=== PATIENT | female | born 1980 | race Caucasian/White ===

== ENCOUNTER 2016-02-14 16:07 | Outpatient (CLI) | payer BC | END 2016-02-14 16:08 | disposition home or self-care (01) | DX: R07.89 Other chest pain (principal) ==

== ENCOUNTER 2016-06-26 16:39 | Outpatient (CLI) | payer BC | END 2016-06-26 16:40 | disposition critical access hospital (66) | DX: R09.89 Other specified symptoms and signs involving the circulatory and respiratory systems (principal) | CPT/HCPCS: A0425; A0429 ==

== ENCOUNTER 2016-06-26 17:05 | Emergency (ER) | payer OTHER, BC ==
[2016-06-26] MEDS ORDERED: LORazepam 0.5 MG TABLET PO STA ×2 (17:38→17:58)
[2016-06-26] MEDS ORDERED: LORazepam 0.5 MG TABLET ONE ×2 (17:40→17:59)
--- NOTE | 2016-06-26 18:41 | ED Physician Documentation ---
History of Present Illness - Stated complaint Stated Complaint: anxiety - Chief complaint Chief Complaint: MHE - History obtained from History obtained from: Patient, Police - Additonal information Additional information: The patient is a 36-year-old female who [facility] When she was placed under arrest the patient became increasingly anxious and began hyperventilating. She remains under arrest, and the officer has brought to the emergency department for medical evaluation to determine fitness for custody in prison. The patient denies the use of alcohol or other drugs. She denies any recent traumatic injury, but complains of feeling anxious and short of breath. Due to the anxiety she exudes, the reliability of her review of systems is questionable. She endorses any symptom that is asked of her, including whether or not her teeth itch or her hair hurts. Review of Systems Unable to obtain: Other (Unreliable in that she has a dominguez positive review of systems.) PD PAST MEDICAL HISTORY - Past Medical History Respiratory: Asthma, Shortness of breath, Other Endocrine/Autoimmune: None : None Psych: Post traumatic stress disorder Musculoskeletal: None Derm: None - Past Surgical History Past Surgical History: Yes - Present Medications Home Medications: Ambulatory Orders Medication Instructions Recorded Confirmed Albuterol Sulf [Ventolin Hfa 01/04/16 Inhaler] Fluticasone 44 Mcg [Flovent] 1 puffs INH BID 01/04/16 01/04/16 - Allergies Allergies/Adverse Reactions: Allergies Allergy/AdvReac Type Severity Reaction Status Date / Time azithromycin Allergy Hives Verified 06/26/16 17:13 morphine Allergy Nausea Verified 06/26/16 17:13 Penicillins Allergy Rash Verified 06/26/16 17:13 codeine AdvReac Nausea Verified 06/26/16 17:13 - Social History Does the pt smoke?: No Smoking Status: Never smoker Does the pt drink ETOH?: No Does the pt have substance abuse?: No - Immunizations Immunizations are current?: No - POLST Patient has POLST: No PD ED PE NORMAL - Vitals Vital signs reviewed: Yes (Tachypneic) - General General: Alert and oriented X 3, Well developed/nourished, Other (Extremely anxious, and hyperventilating.) - HEENT HEENT: Atraumatic, PERRL, EOMI, Ears normal, Pharynx benign - Neck Neck: Supple, no meningeal sign, No adenopathy, No JVD - Cardiac Cardiac: RRR, No murmur - Respiratory Respiratory: No respiratory distress, Clear bilaterally - Abdomen Abdomen: Soft, Non tender, No organomegaly - Back Back: No CVA TTP - Derm Derm: No rash - Extremities Extremities: No edema, No calf tenderness / cord - Neuro Neuro: Alert and oriented X 3, No motor deficit PD ED PE EXPANDED - Psych Psych: Anxious, Pressured speech Results - Vitals Vitals: Oxygen O2 Source Room air - Labs Labs: Laboratory Tests 06/26/16 18:05 Urine Opiates Screen NEGATIVE Ur Oxycodone Screen NEGATIVE Urine Methadone Screen NEGATIVE Ur Propoxyphene Screen NEGATIVE Ur Barbiturates Screen NEGATIVE Ur Tricyclics Screen NEGATIVE Ur Phencyclidine Scrn NEGATIVE Ur Amphetamine Screen POSITIVE H U Methamphetamines Scrn POSITIVE H U Benzodiazepines Scrn NEGATIVE Urine Cocaine Screen NEGATIVE U Cannabinoids Screen POSITIVE H PD MEDICAL DECISION MAKING - ED course Complexity details: reviewed old records, reviewed results, re-evaluated patient , considered differential, d/w patient, other (d/w [facility].) ED course: The patient's presentation is significant for anxiety reaction to the stress of being placed under arrest. She is also under the influence of methamphetamine, with a urine tox screen that is positive for amphetamine, methamphetamine, and cannabinoids. She was hyperventilating upon initial arrival in the emergency department. By the time of discharge her hyperventilation had resolved. Treatment in the emergency department included administration of lorazepam 0.5 mg orally. The nurse at the [facility] was contacted and confirms that staff at the prison are able to monitor a person in the patient's condition. A fit for custody form was completed. At the time of discharge, when the patient was requested to stand up from the [place], she allowed herself to fall to the floor, and began complaining of pain in her right hip. I thoroughly examined her hip and pelvis, and found there to be no clinical indication for imaging studies. She demonstrated the ability to bear weight on her right leg as she was walked to the squad car in the custody of the [facility]. Departure - Departure Disposition: 01 Home, Self Care Clinical Impression: Hyperventilation syndrome, Methamphetamine abuse Condition: Stable Instructions: ED Hyperventilation Syndrome, Abuse Meth Abuse and Addiction Follow-Up: Jayne Pyle MD [Physician No Access] - Comments: Refrain from methamphetamine and other nonprescription drugs. Follow up with your primary physician. Call to schedule an appointment. Return to the emergency department if you develop increasing difficulty breathing, or otherwise worsening symptoms. Discharge Date/Time: 06/26/16 18:55
[2016-06-26 18:54] VITALS: BP 165/110
== END 2016-06-26 18:55 | disposition home or self-care (01) ==
LOC: ED 17:05
DX: F45.8 Other somatoform disorders (principal); F41.9 Anxiety disorder, unspecified; F15.10 Other stimulant abuse, uncomplicated; M25.551 Pain in right hip; J45.909 Unspecified asthma, uncomplicated
CPT/HCPCS: 80306; 99283; 99284; A9270

== ENCOUNTER 2017-08-03 17:38 | Outpatient (CLI) | payer BC, OTHER | END 2017-08-03 17:39 | disposition short-term general hospital (02) | LOC: EMS 17:38 | PROVIDERS: ATTEND Surgery | DX: O99.89 Other specified diseases and conditions complicating pregnancy, childbirth and the puerperium (principal); R10.9 Unspecified abdominal pain; Y04.2XXA Assault by strike against or bumped into by another person, initial encounter | CPT/HCPCS: A0425; A0429 ==

== ENCOUNTER 2017-11-25 23:38 | Outpatient (CLI) | payer BC, MEDICAID ==
[2017-11-26 01:03] LABS: MUDS CUTOFF CONCENTRATIONS CUTOFF CONC BELOW:
[2017-11-26 01:09] LABS: BILIRUBIN,URINE NEGATIVE (NEGATIVE); GLUCOSE, URINE (UA) NEGATIVE (NEGATIVE); KETONES,URINE (UA) TRACE mg/dL (NEGATIVE); LEUKOCYTE ESTERASE, URINE NEGATIVE (NEGATIVE); NITRITE,URINE NEGATIVE (NEGATIVE); OCCULT BLOOD,URINE NEGATIVE (NEGATIVE); PH,URINE 6.5 PH (5.0-7.5); PROTEIN,URINE NEGATIVE (NEGATIVE); UROBILINOGEN,URINE 0.2 (NORMAL) E.U./dL (NORMAL)
[2017-11-26 01:20] LABS: CLARITY,URINE CLEAR (CLEAR); COCAINE SCREEN URINE NEGATIVE (NEGATIVE); METHAMPHETAMINES SCREEN, URINE NEGATIVE (NEGATIVE)
[2017-11-26 01:21] LABS: AMPHETAMINE SCREEN,URINE POSITIVE (NEGATIVE); BENZODIAZEPINES SCREEN, URINE NEGATIVE (NEGATIVE); METHADONE SCREEN, URINE NEGATIVE (NEGATIVE); OPIATE SCREEN, URINE NEGATIVE (NEGATIVE); OXYCODONE SCREEN, URINE NEGATIVE (NEGATIVE); PROPOXYPHENE SCREEN, URINE NEGATIVE (NEGATIVE); TRICYCLIC ANTIDEPRESSANT,URINE NEGATIVE (NEGATIVE)
[2017-11-26 02:02] VITALS: BP 124/91
== END 2017-11-26 01:55 | disposition home or self-care (01) ==
LOC: WFO 23:38 → FBP 23:45 → WFO 11-26 01:55
PROVIDERS: ATTEND Obstetrics & Gynecology
DX: O47.03 False labor before 37 completed weeks of gestation, third trimester (principal); Z3A.32 32 weeks gestation of pregnancy
CPT/HCPCS: 80306; 81001; 81003; 82731; 87086; 99213

== ENCOUNTER 2017-12-30 01:49 | Outpatient (CLI) | payer BC, MEDICAID ==
[2017-12-30 02:15] VITALS: BP 136/91
[2017-12-30 02:22] LABS: MUDS CUTOFF CONCENTRATIONS CUTOFF CONC BELOW:
[2017-12-30 02:23] LABS: BILIRUBIN,URINE NEGATIVE (NEGATIVE); GLUCOSE, URINE (UA) NEGATIVE (NEGATIVE); KETONES,URINE (UA) NEGATIVE (NEGATIVE); LEUKOCYTE ESTERASE, URINE NEGATIVE (NEGATIVE); NITRITE,URINE NEGATIVE (NEGATIVE); OCCULT BLOOD,URINE NEGATIVE (NEGATIVE); PROTEIN,URINE NEGATIVE (NEGATIVE); UROBILINOGEN,URINE 0.2 (NORMAL) E.U./dL (NORMAL)
[2017-12-30 02:24] LABS: CLARITY,URINE CLEAR (CLEAR)
[2017-12-30 02:25] LABS: BACTERIA,URINE None Seen /HPF (None Seen); RBC,URINE None Seen /HPF (0-5); SQUAMOUS EPITHELIAL CELL,UR NONE SEEN (<= Few)
[2017-12-30 02:33] LABS: AMPHETAMINE SCREEN,URINE POSITIVE (NEGATIVE); BENZODIAZEPINES SCREEN, URINE NEGATIVE (NEGATIVE); COCAINE SCREEN URINE NEGATIVE (NEGATIVE); METHADONE SCREEN, URINE NEGATIVE (NEGATIVE); METHAMPHETAMINES SCREEN, URINE POSITIVE (NEGATIVE); OPIATE SCREEN, URINE NEGATIVE (NEGATIVE); OXYCODONE SCREEN, URINE NEGATIVE (NEGATIVE); PROPOXYPHENE SCREEN, URINE NEGATIVE (NEGATIVE); TRICYCLIC ANTIDEPRESSANT,URINE NEGATIVE (NEGATIVE)
== END 2017-12-30 03:38 | disposition home or self-care (01) ==
LOC: WFO 01:49 → FBP 01:51 → WFO 03:38
PROVIDERS: ATTEND Obstetrics & Gynecology
DX: O26.93 Pregnancy related conditions, unspecified, third trimester (principal); O99.323 Drug use complicating pregnancy, third trimester; F15.90 Other stimulant use, unspecified, uncomplicated; O22.33 Deep phlebothrombosis in pregnancy, third trimester; Z3A.37 37 weeks gestation of pregnancy; Z79.01 Long term (current) use of anticoagulants
CPT/HCPCS: 80306; 81001; 87086; 99213

== ENCOUNTER 2018-07-23 14:53 | Emergency (ER) | payer BC, MEDICAID ==
[2018-07-23 15:19] VITALS: BP 128/87
[2018-07-23] MEDS ORDERED: cefTRIAXone 1 GM VIAL IM STA (16:43)
[2018-07-23] MEDS ORDERED: LIDOCAINE 1% 2 ML VIAL MC ONE (16:43)
[2018-07-23] MEDS ORDERED: oxyCODONE 5 MG TABLET PO STA (16:45)
[2018-07-23] MEDS ORDERED: CLINDAMYCIN 150 MG CAPSULE PO STA (16:45)
== END 2018-07-23 16:50 | disposition left against medical advice (07) ==
LOC: ED 14:53
DX: Z53.21 Procedure and treatment not carried out due to patient leaving prior to being seen by health care provider (principal)
CPT/HCPCS: 99282

== ENCOUNTER 2018-07-26 00:05 | Emergency (ER) | payer MEDICAID ==
[2018-07-26] MEDS ORDERED: CLINDAMYCIN 300 MG/2 ML VIAL IM STA (00:47)
[2018-07-26] MEDS ORDERED: CLINDAMYCIN 900 MG/50 ML 50 ML IV ONE (01:04)
[2018-07-26] MEDS ORDERED: oxyCODONE 5 MG TABLET PO STA (01:05)
[2018-07-26] MEDS ORDERED: SULFAMETH/TRIMETH DS 800/160 MG TABLET PO STA (01:48)
--- NOTE | 2018-07-26 01:53 | ED Physician Documentation ---
PD HPI SKIN - Stated complaint Stated Complaint: HARRY/WOUND OOZING - Chief complaint Chief Complaint: Neuro - History obtained from History obtained from: Patient - History of Present Illness Timing - onset: How many weeks ago (1) Timing - details: Gradual onset Location: Scalp Quality / character: Painful, Swelling, Draining Similar symptoms before: Has not had sx before - Additional information Additional information: The patient is a 38-year-old female who presents with draining abscess on the posterior scalp at the hairline. She first noticed a small swollen "pimple" about 1 week ago after having hair extensions placed. It has become increasingly swollen and painful since that time. She presented to the emergency department 2 days ago, but left prior to receiving treatment because she had to attend to her baby. She returns now because the abscess has been oozing pus today. It remains painful. She denies fever. She denies history of similar symptoms in the past. She denies history of MRSA. Review of Systems Constitutional: denies: Fever Eyes: denies: Irritation Ears: denies: Ear pain Nose: denies: Congestion Throat: denies: Sore throat Cardiac: denies: Chest pain / pressure Respiratory: denies: Dyspnea, Cough GI: denies: Abdominal Pain, Nausea, Vomiting Skin: reports: Other (Abscess posterior scalp.) Musculoskeletal: reports: Neck pain Neurologic: reports: Headache PD PAST MEDICAL HISTORY - Past Medical History Past Medical History: Yes Respiratory: Asthma, Shortness of breath, Other Endocrine/Autoimmune: None : None Psych: Post traumatic stress disorder Musculoskeletal: None Derm: None - Past Surgical History Past Surgical History: Yes - Present Medications Home Medications: Ambulatory Orders Medication Instructions Recorded Confirmed Albuterol Sulf [Ventolin Hfa 01/04/16 Inhaler] Clindamycin HCl [Clindamycin 300MG 300 mg PO Q6H #28 capsule 07/26/18 CAP] Oxycodone HCl/Acetaminophen 1 - 2 each PO Q6H PRN #14 tablet 07/26/18 [Percocet 5-325 mg Tablet] Sulfamethox/Trimeth 800/160 1 each PO BID #14 tablet 07/26/18 [Bactrim Ds 800/160] - Allergies Allergies/Adverse Reactions: Allergies Allergy/AdvReac Type Severity Reaction Status Date / Time azithromycin Allergy Hives Verified 07/26/18 00:12 morphine Allergy Nausea Verified 07/26/18 00:12 Penicillins Allergy Rash Verified 07/26/18 00:12 codeine AdvReac Nausea Verified 07/26/18 00:12 - Social History Does the pt smoke?: No Smoking Status: Never smoker Does the pt drink ETOH?: No Does the pt have substance abuse?: No - Immunizations Immunizations are current?: No - POLST Patient has POLST: No PD ED PE NORMAL - Vitals Vital signs reviewed: Yes (initially hypertensive) - General General: Alert and oriented X 3, Well developed/nourished - HEENT HEENT: Atraumatic, EOMI, Ears normal, Pharynx benign, Other (A draining abscess is noted on the posterior scalp just above the hairline. It is erythematous and quite tender to palpation.) - Neck Neck: Supple, no meningeal sign, Other (Posterior cervical nodes are slightly enlarged.) - Cardiac Cardiac: RRR, No murmur - Respiratory Respiratory: No respiratory distress, Clear bilaterally - Abdomen Abdomen: Soft, Non tender - Back Back: No CVA TTP - Derm Derm: No rash - Extremities Extremities: No edema, No calf tenderness / cord - Neuro Neuro: Alert and oriented X 3, No motor deficit, Normal speech Results - Vitals Vitals: Vital Signs - 24 hr 07/26/18 07/26/18 00:07 03:00 Temperature 36.4 C L 36.7 C Heart Rate 109 H 94 Respiratory 16 Rate Blood Pressure 147/98 H 142/94 H O2 Saturation 97 99 Oxygen O2 Source Room air - Labs Labs: Microbiology 07/26/18 01:25 Wound Culture - Preliminary Abscess Procedures - Abscess I&D (location) Posterior scalp Preparation: Betadine, Lidocaine 1%, With epi Incision: Purulent drainage, Loculations broken, Irrigated, Culture obtained Other: Dressing applied, Antibiotic prescribed, Other (The patient stopped me from inserting iodoform packing due to discomfort.) PD MEDICAL DECISION MAKING - ED course Complexity details: reviewed old records, re-evaluated patient, considered differential, d/w patient ED course: The patient's presentation is significant for abscess in the occipital region of the scalp. The abscess has begun draining spontaneously. Treatment in the emergency department included irrigation of the abscess pocket after topical anesthetic with 1% lidocaine with epinephrine. The patient would not allow me to insert an iodoform gauze packing. Swab of the abscess site was sent for culture. Oxycodone 5 mg was administered orally and fentanyl 25 mg administered IV. Clindamycin 900 mg was administered IV and Bactrim DS 1 tablet orally. She is being discharged with prescriptions for clindamycin, Bactrim DS, and Percocet 14 tablets. I discussed with her local wound care, antibiotic treatment and outpatient follow-up, as well as potentially worrisome signs or symptoms that should prompt reevaluation in the emergency department. Departure - Departure Disposition: 01 Home, Self Care Clinical Impression: Abscess Condition: Stable Instructions: ED Abscess IandD Prescriptions: Clindamycin HCl [Clindamycin 300MG CAP] 300 mg PO Q6H #28 capsule Oxycodone HCl/Acetaminophen [Percocet 5-325 mg Tablet] 1 - 2 each PO Q6H PRN #14 tablet PRN Reason: pain Sulfamethox/Trimeth 800/160 [Bactrim Ds 800/160] 1 each PO BID #14 tablet Comments: Apply hot pack to the abscess area 4 or 5 times daily for the next 3 days. Take clindamycin and Bactrim as prescribed. You can use ibuprofen, up to 800 mg 3 times daily for pain or fever. You can use Percocet as prescribed if needed for pain. Follow-up with primary physician within 1 week if at all possible. Call to schedule an appointment. Return to the emergency department if you develop increasing redness, swelling, pain, fever with shaking chills, or otherwise worsening symptoms. Discharge Date/Time: 07/26/18 03:02
[2018-07-26] MEDS ORDERED: fentaNYL 100 MCG/2 ML VIAL IVP STA (02:46)
[2018-07-26 03:01] VITALS: BP 142/94
== END 2018-07-26 03:02 | disposition home or self-care (01) ==
LOC: ED 00:05
DX: L02.811 Cutaneous abscess of head [any part, except face] (principal); Z88.0 Allergy status to penicillin
CPT/HCPCS: 10060; 87070; 87181; 87205; 96365; 96375; 99283; A9270

== ENCOUNTER 2019-01-02 08:19 | Outpatient (CLI) | payer OTHER, MEDICAID | END 2019-01-02 08:20 | disposition critical access hospital (66) | LOC: EMS 08:19 | PROVIDERS: ATTEND Surgery | DX: R51 Headache (principal); M25.552 Pain in left hip; M25.512 Pain in left shoulder; W18.2XXA Fall in (into) shower or empty bathtub, initial encounter; Y93.E1 Activity, personal bathing and showering; Y92.89 Other specified places as the place of occurrence of the external cause | CPT/HCPCS: A0425; A0429 ==

== ENCOUNTER 2019-01-02 08:22 | Emergency (ER) | payer OTHER, MEDICAID ==
[2019-01-02 09:12] LABS: BILIRUBIN,URINE NEGATIVE (NEGATIVE); GLUCOSE, URINE (UA) NEGATIVE (NEGATIVE); KETONES,URINE (UA) NEGATIVE (NEGATIVE); LEUKOCYTE ESTERASE, URINE NEGATIVE (NEGATIVE); NITRITE,URINE NEGATIVE (NEGATIVE); OCCULT BLOOD,URINE NEGATIVE (NEGATIVE); PH,URINE 7.5 PH (5.0-7.5); PROTEIN,URINE NEGATIVE (NEGATIVE); UROBILINOGEN,URINE 0.2 (NORMAL) E.U./dL (NORMAL)
[2019-01-02 09:18] LABS: MUDS CUTOFF CONCENTRATIONS CUTOFF CONC BELOW:
[2019-01-02 09:26] LABS: CLARITY,URINE CLEAR (CLEAR); HCG UR QUAL NEGATIVE
[2019-01-02 09:28] LABS: BASOPHILS % (AUTO) 0.4 %; EOSINOPHILS # (AUTO) 0.1 10^3/uL (0.0-0.7); EOSINOPHILS % (AUTO) 0.9 %; LYMPHOCYTES # (AUTO) 1.5 10^3/uL (1.5-3.5); LYMPHOCYTES % (AUTO) 15.8 %; MEAN CORPUSCULAR HEMOGLOBIN 30.7 pg (27.0-31.0); MEAN CORPUSCULAR HGB CONC 33.6 g/dL (32.0-36.0); MEAN CORPUSCULAR VOLUME 91.4 fL (81.0-99.0); MEAN PLATELET VOLUME 9.9 fL (7.9-10.8); MONOCYTES # (AUTO) 0.6 10^3/uL (0.0-1.0); MONOCYTES % (AUTO) 6.4 %; NEUTROPHILS # (AUTO) 7.3 10^3/uL (1.5-6.6); NEUTROPHILS % (AUTO) 76.1 %; PLT - PLATELET COUNT 327 10^3/uL (130-450); RED BLOOD COUNT 4.88 10^6/uL (4.20-5.40); RED CELL DISTRIBUTION WIDTH 13.3 % (12.0-15.0); WHITE BLOOD COUNT 9.6 x10^3/uL (4.8-10.8)
[2019-01-02 09:28] LABS: AMPHETAMINE SCREEN,URINE NEGATIVE (NEGATIVE); BENZODIAZEPINES SCREEN, URINE POSITIVE (NEGATIVE); COCAINE SCREEN URINE NEGATIVE (NEGATIVE); METHADONE SCREEN, URINE NEGATIVE (NEGATIVE); METHAMPHETAMINES SCREEN, URINE NEGATIVE (NEGATIVE); OPIATE SCREEN, URINE NEGATIVE (NEGATIVE); OXYCODONE SCREEN, URINE NEGATIVE (NEGATIVE); PROPOXYPHENE SCREEN, URINE NEGATIVE (NEGATIVE); TRICYCLIC ANTIDEPRESSANT,URINE NEGATIVE (NEGATIVE)
--- NOTE | 2019-01-02 09:41 | CT Report ---
Reason: syncope, fall head and neck inj. L sided deficit Procedure Date: 01/02/2019 Accession Number: [id number] / [id number] Procedure: CT - CERVICAL SPINE WO CPT Code: Final Report FULL RESULT: EXAM: CT CERVICAL SPINE WITHOUT CONTRAST DATE: 01/02/2019 09:09 AM. HISTORY: Syncope, fall head and neck injury/pain. L sided deficit. COMPARISONS: None. TECHNIQUE: Thin-section axial images were acquired of the cervical spine without contrast. Post-processing: Coronal and sagittal reformats. Other: None. In accordance with CT protocol optimization, one or more of the following dose reduction techniques were utilized for this exam: automated exposure control, adjustment of mA and/or KV based on patient size, or use of iterative reconstructive technique. FINDINGS: Alignment: No scoliosis or spondylolisthesis. Bones: No fracture or bone lesion. Interspace Levels/Facets: No acute malalignment. Mild C5-C6 disk level degenerative changes with disk height loss and osteophytosis. No significant spinal stenosis seen. Other: The paravertebral and prevertebral soft tissues are unremarkable. Mild paraseptal emphysema at the lung apices. IMPRESSION: Negative cervical spine CT. RADIA
[2019-01-02 09:42] LABS: ALBUMIN 4.3 g/dL (3.2-5.5); ALBUMIN/GLOBULIN RATIO 1.2 (1.0-2.2); CREATININE 0.6 mg/dL (0.4-1.0); TOTAL PROTEIN 7.8 g/dL (6.7-8.2)
--- NOTE | 2019-01-02 10:17 | CT Report ---
Reason: syncope, fall head injury Left sided deficit Procedure Date: 01/02/2019 Accession Number: [id number] / [id number] Procedure: CT - HEAD WO CPT Code: Final Report FULL RESULT: EXAM: CT HEAD EXAM DATE: 01/02/2019 09:18 AM. CLINICAL HISTORY: Syncope, fall head injury Left sided deficit. COMPARISON: HEAD W/O 01/02/2019 9:09 AM CERVICAL SPINE W/O 01/02/2019 9:09 AM. TECHNIQUE: Multiaxial CT images were obtained from the foramen magnum to the vertex. Reformats: Sagittal and coronal. IV contrast: None. In accordance with CT protocol optimization, one or more of the following dose reduction techniques were utilized for this exam: automated exposure control, adjustment of mA and/or KV based on patient size, or use of iterative reconstructive technique. FINDINGS: Parenchyma: No intraparenchymal hemorrhage. No evidence of mass, midline shift, or CT findings of infarction. Aden-white differentiation is distinct. Extraaxial Spaces: Normal for age. No subdural or epidural collections identified. Ventricles: Normal in size and position. Sinuses and Orbits: Imaged paranasal sinuses, orbits, and mastoids show no significant abnormality. Bones: No evidence of fracture or calvarial defect. Other: None. IMPRESSION: Normal head CT. RADIA
--- NOTE | 2019-01-02 11:49 | XRAY Report ---
Reason: fall left hip pain Procedure Date: 01/02/2019 Accession Number: [id number] / [id number] Procedure: XR - Hip w/Pelvis 2-3V LT CPT Code: Final Report FULL RESULT: EXAM: LEFT HIP RADIOGRAPHY EXAM DATE: 01/02/2019 11:24 AM. CLINICAL HISTORY: Fall left hip pain. COMPARISON: None. TECHNIQUE: 2 views. FINDINGS: Bones: Normal. No fractures or bone lesion. Joints: Normal. No dislocation. The hip joint space is preserved. Soft Tissues: Normal. No soft tissue swelling. IMPRESSION: Normal hip radiography. RADIA
--- NOTE | 2019-01-02 11:49 | XRAY Report ---
Reason: fall left lateral elbow pain Procedure Date: 01/02/2019 Accession Number: [id number] / [id number] Procedure: XR - Elbow 3 View LT CPT Code: Final Report FULL RESULT: EXAM: LEFT ELBOW RADIOGRAPHY EXAM DATE: 01/02/2019 11:25 AM. CLINICAL HISTORY: Fall left lateral elbow pain. COMPARISON: None. TECHNIQUE: 4 views. FINDINGS: Bones: Normal. No fractures or bone lesions. Joints: Normal. No effusion. No subluxation. Soft Tissues: Normal. No soft tissue swelling. IMPRESSION: Normal elbow radiography. RADIA
--- NOTE | 2019-01-02 12:14 | ED Physician Documentation ---
PD HPI Fall - Stated complaint Stated Complaint: GLF - Chief complaint Chief Complaint: Trauma Hd/Nk - History obtained from History obtained from: Patient, EMS - History of Present Illness Mechanism of injury: Slipped Fall distance: Standing position Where injury occurred: Detention (shower) Timing - onset: Today Injury(ies) location: Head, Neck, Left Uppper Extremity, Left Lower Extremity Quality of pain: Pain, Throbbing Associated symptoms: Neck pain, Weakness, Paresthesias. No: LOC, AMS, Amnesia Symptoms improve with: Rest Worsens with: Movement Similar symptoms before: Has not had sx before Recently seen: Other (seen in [facility] for withdrawal symptoms) - Additional information Additional information: 38-year-old female in [facility] for 1 week was in the shower today when she collapsed and fell against the left side of her body. She complains of pain in her head her neck her left elbow and her left hip. She feels that she is not able to feel or move her lower extremities. Review of Systems Constitutional: denies: Fever Eyes: denies: Decreased vision Ears: denies: Ear pain Nose: denies: Congestion Throat: denies: Sore throat Cardiac: denies: Chest pain / pressure, Palpitations Respiratory: denies: Dyspnea, Cough GI: denies: Abdominal Pain, Nausea, Vomiting : denies: Dysuria, Frequency PD PAST MEDICAL HISTORY - Past Medical History Past Medical History: Yes Respiratory: Asthma, Shortness of breath, Other Endocrine/Autoimmune: None : None Psych: Post traumatic stress disorder Musculoskeletal: None Derm: None - Past Surgical History Past Surgical History: Yes - Present Medications Home Medications: Ambulatory Orders Medication Instructions Recorded Confirmed Albuterol Sulf [Ventolin Hfa 01/04/16 Inhaler] Clindamycin HCl [Clindamycin 300MG 300 mg PO Q6H #28 capsule 07/26/18 CAP] Oxycodone HCl/Acetaminophen 1 - 2 each PO Q6H PRN #14 tablet 07/26/18 [Percocet 5-325 mg Tablet] Sulfamethox/Trimeth 800/160 1 each PO BID #14 tablet 07/26/18 [Bactrim Ds 800/160] - Allergies Allergies/Adverse Reactions: Allergies Allergy/AdvReac Type Severity Reaction Status Date / Time azithromycin Allergy Hives Verified 01/02/19 08:39 morphine Allergy Nausea Verified 01/02/19 08:39 Penicillins Allergy Rash Verified 01/02/19 08:39 codeine AdvReac Nausea Verified 01/02/19 08:39 - Social History Does the pt smoke?: No Smoking Status: Never smoker Does the pt drink ETOH?: No Does the pt have substance abuse?: No - Immunizations Immunizations are current?: No - POLST Patient has POLST: No PD ED PE NORMAL - Vitals Vital signs reviewed: Yes - General General: Alert and oriented X 3, Well developed/nourished, Other (on a backboard in C-spine immobilizatio n) - HEENT HEENT: Atraumatic, PERRL, EOMI - Neck Neck: Supple, no meningeal sign, Other (midline bony tenderness mid cervical spine. ) - Cardiac Cardiac: RRR, No murmur - Respiratory Respiratory: No respiratory distress, Clear bilaterally, Other (no chest wall tenderness) - Abdomen Abdomen: Soft, Non tender - Back Back: No CVA TTP, No spinal TTP - Derm Derm: Normal color, No rash - Extremities Extremities: No deformity, No edema - Neuro Neuro: Alert and oriented X 3, field supervisor 2-12 intact, Normal speech, Other (On initial exam there is loss of sensation to the lower ext worse on the left and she is moving the toes on the right but not the left. ) Eye Opening: Spontaneous Motor: Obeys Commands Verbal: Oriented GCS Score: 15 - Psych Psych: Normal mood, Normal affect Results - Vitals Vitals: Vital Signs - 24 hr 01/02/19 01/02/19 08:26 11:00 Temperature 36.9 C Heart Rate 81 76 Respiratory 18 18 Rate Blood Pressure 134/93 H 110/94 H O2 Saturation 99 100 Oxygen O2 Source Room air - Labs Labs: Laboratory Tests 01/02/19 01/02/19 01/02/19 09:02 09:02 09:22 WBC 9.6 RBC 4.88 Hgb 15.0 Hct 44.6 MCV 91.4 MCH 30.7 MCHC 33.6 RDW 13.3 Plt Count 327 MPV 9.9 Neut # (Auto) 7.3 H Lymph # (Auto) 1.5 [place] # (Auto) 0.6 Eos # (Auto) 0.1 Baso # (Auto) 0.0 Absolute Nucleated RBC 0.00 Nucleated RBC % 0.0 Sodium Potassium Chloride Carbon Dioxide Anion Gap BUN Creatinine Estimated GFR (MDRD) Glucose Calcium Total Bilirubin AST ALT Alkaline Phosphatase Total Protein Albumin Globulin Albumin/Globulin Ratio Lipase Urine Color YELLOW Urine Clarity CLEAR Urine pH 7.5 Ur Specific [place] 1.010 Urine Protein NEGATIVE Urine Glucose (UA) NEGATIVE Urine Ketones NEGATIVE Urine Occult Blood NEGATIVE Urine Nitrite NEGATIVE Urine Bilirubin NEGATIVE Urine Urobilinogen 0.2 (NORMAL) Ur Leukocyte Esterase NEGATIVE Ur Microscopic Review NOT INDICATED Urine Culture Comments NOT INDICATED Urine HCG, Qual NEGATIVE Urine Opiates Screen NEGATIVE Ur Oxycodone Screen NEGATIVE Urine Methadone Screen NEGATIVE Ur Propoxyphene Screen NEGATIVE Ur Barbiturates Screen NEGATIVE Ur Tricyclics Screen NEGATIVE Ur Phencyclidine Scrn NEGATIVE Ur Amphetamine Screen NEGATIVE U Methamphetamines Scrn NEGATIVE U Benzodiazepines Scrn POSITIVE H Urine Cocaine Screen NEGATIVE U Cannabinoids Screen POSITIVE H 01/02/19 09:22 WBC RBC Hgb Hct MCV MCH MCHC RDW Plt Count MPV Neut # (Auto) Lymph # (Auto) [place] # (Auto) Eos # (Auto) Baso # (Auto) Absolute Nucleated RBC Nucleated RBC % Sodium 137 Potassium 4.2 Chloride 102 Carbon Dioxide 28 Anion Gap 7.0 BUN 9 Creatinine 0.6 Estimated GFR (MDRD) 112 Glucose 87 Calcium 9.0 Total Bilirubin 1.0 AST 22 ALT 30 Alkaline Phosphatase 66 Total Protein 7.8 Albumin 4.3 Globulin 3.5 Albumin/Globulin Ratio 1.2 Lipase 33 Urine Color Urine Clarity Urine pH Ur Specific [place] Urine Protein Urine Glucose (UA) Urine Ketones Urine Occult Blood Urine Nitrite Urine Bilirubin Urine Urobilinogen Ur Leukocyte Esterase Ur Microscopic Review Urine Culture Comments Urine HCG, Qual Urine Opiates Screen Ur Oxycodone Screen Urine Methadone Screen Ur Propoxyphene Screen Ur Barbiturates Screen Ur Tricyclics Screen Ur Phencyclidine Scrn Ur Amphetamine Screen U Methamphetamines Scrn U Benzodiazepines Scrn Urine Cocaine Screen U Cannabinoids Screen - Rads (name of study) CT head Radiology: Prelim report reviewed (Impression normal head CT.), EMP read indepedently, See rad report CT cervical spine Radiology: Prelim report reviewed (Impression negative cervical spine CT.), EMP read indepedently, See rad report left elbow Radiology: Prelim report reviewed (Impression normal elbow radiography.), EMP read indepedently, See rad report Left hip Radiology: Prelim report reviewed, EMP read indepedently, See rad report PD MEDICAL DECISION MAKING - ED course Complexity details: reviewed old records, reviewed results, re-evaluated patient, considered differential, d/w patient ED course: 38-year-old female with a fall in the [facility] has complaints of pain in the head neck left elbow and left hip these all improve over time as does her ability to move her lower extremities and have sensation to them. She is discharged back to the [facility]. Departure - Departure Disposition: 01 Home, Self Care Clinical Impression: Fall from slip, trip, or stumble Qualifiers: Encounter type: initial encounter Qualified Code(s): W01.0XXA - Fall on same level from slipping, tripping and stumbling without subsequent striking against object, initial encounter Forearm contusion Qualifiers: Encounter type: initial encounter Laterality: left Qualified Code(s): S50.12XA - Contusion of left forearm, initial encounter Cervical strain, acute Qualifiers: Encounter type: initial encounter Qualified Code(s): S16.1XXA - Strain of muscle, fascia and tendon at neck level, initial encounter Concussion Qualifiers: Encounter type: initial encounter Loss of consciousness presence/duration: without LOC Qualified Code(s): S06.0X0A - Concussion without loss of consciousness, initial encounter Contusion, hip Qualifiers: Encounter type: initial encounter Laterality: left Qualified Code(s): S70.02XA - Contusion of left hip, initial encounter Instructions: ED Sprain Strain Neck, ED Contusion Hip, ED Contusion Elbow, ED Concussion Follow-Up: [facility] [Provider Group]
[2019-01-02 12:26] VITALS: BP 136/101
== END 2019-01-02 13:09 | disposition home or self-care (01) ==
LOC: EDUNIT# → ED 08:22
DX: S06.0X0A Concussion without loss of consciousness, initial encounter (principal); S16.1XXA Strain of muscle, fascia and tendon at neck level, initial encounter; S70.02XA Contusion of left hip, initial encounter; S50.12XA Contusion of left forearm, initial encounter; W01.0XXA Fall on same level from slipping, tripping and stumbling without subsequent striking against object, initial encounter; Y93.E1 Activity, personal bathing and showering; Y92.142 Bathroom in prison as the place of occurrence of the external cause
CPT/HCPCS: 36415; 70450; 72125; 80053; 80306; 81001; 81003; 81025; 83690; 85025; 87086; 99284

== ENCOUNTER 2020-01-11 13:39 | Emergency (ER) | payer MEDICAID ==
[2020-01-11 13:44] VITALS: BP 133/104
[2020-01-11] MEDS ORDERED: BUFFERED LIDOCAINE 10 ML SYRINGE SUBQ STA (13:58)
[2020-01-11] MEDS ORDERED: TETANUS/DIPHTHERIA/PERTUSSIS 0.5 ML SYRINGE IM ONE (13:58)
--- NOTE | 2020-01-11 14:00 | ED Physician Documentation ---
History of Present Illness - Stated complaint Stated Complaint: BITE BY SPIDER - Chief complaint Chief Complaint: Wound - History obtained from History obtained from: Patient - History of Present Illness Timing: How many days ago (2) - Additonal information Additional information: 39-year-old female presents to the emergency department for concerns of an abscess formation on her upper back that began 2 days ago. She denies any fevers or history of similar. She reports that she thinks she was bitten by a spider. She states that even light touch from her shirts causes pain. Denies any history of diabetes unknown last tetanus Review of Systems Constitutional: reports: Reviewed and negative Eyes: reports: Reviewed and negative Nose: reports: Reviewed and negative Throat: reports: Reviewed and negative Cardiac: reports: Reviewed and negative Respiratory: reports: Reviewed and negative GI: reports: Reviewed and negative : reports: Reviewed and negative Skin: reports: Lesions (abscess and cellulitis upper back) Musculoskeletal: reports: Reviewed and negative Neurologic: reports: Reviewed and negative PD PAST MEDICAL HISTORY - Past Medical History Respiratory: Asthma, Shortness of breath, Other Endocrine/Autoimmune: None : None Psych: Post traumatic stress disorder Musculoskeletal: None Derm: None - Past Surgical History Past Surgical History: Yes - Present Medications Home Medications: Ambulatory Orders Medication Instructions Recorded Confirmed Clindamycin [Cleocin] 450 mg PO TID #45 capsule 01/11/20 - Allergies Allergies/Adverse Reactions: Allergies Allergy/AdvReac Type Severity Reaction Status Date / Time azithromycin Allergy Hives Verified 01/11/20 13:44 morphine Allergy Nausea Verified 01/11/20 13:44 Penicillins Allergy Rash Verified 01/11/20 13:44 codeine AdvReac Nausea Verified 01/11/20 13:44 - Social History Does the pt smoke?: No Smoking Status: Never smoker Does the pt drink ETOH?: No Does the pt have substance abuse?: No - Immunizations Immunizations are current?: No - POLST Patient has POLST: No PD ED PE EXPANDED - General General: Alert, Well developed/nourished, In distress - Cardiac Cardiac: Tachy, Radial strong equal, Cap refill < 2 sec. No: Murmur Present - Respiratory Respiratory: Clear to ausultation nathan. No: Distress, Labored - Derm Derm: Normal color, Warm and dry, Abscess (3 x 3 cm abscess upper back just medial to the scapula. Mild fluctuance and surrounding erythema with induration.). No: Rash Results - Vitals Vitals: Vital Signs - 24 hr 01/11/20 13:40 Temperature 36.6 C Heart Rate 104 H Respiratory 18 Rate Blood Pressure 133/104 H O2 Saturation 100 Oxygen O2 Source Room air Procedures - Abscess I&D (location) upper back Preparation: Betadine Incision: Incised with scalpel, Purulent drainage, Loculations broken, Irrigated, Packed Other: Pt tolerated well, Dressing applied, Antibiotic prescribed PD MEDICAL DECISION MAKING - ED course Complexity details: re-evaluated patient, considered differential, d/w patient ED course: 39-year-old female presents the emergency department for evaluation and treatment of an upper back abscess and cellulitis that began about 2 days ago. On exam she has about 3 x 3 area centimeter of induration with fluctuance. Incision and drainage was done at the bedside with a small to moderate amount of purulent fluid drained. Loculations were broken up. She will be discharged with a prescription for Bactrim. Advised to have the packing removed in 24 hours. We will also recommend warm compress 3 times a day. Emergent return precautions discussed for concerns of worsening infection. 1420: At the end of the clinical encounter patient reports to this provider that she has incidentally about 8 weeks . LMP 11/10/2019. She is scheduled to see her OB at [place] next week. She denies vaginal bleeding loss of fluids pelvic pain or cramping. Given will change antibiotics to c lindamycin which has a safer side effect profile in to treat the cellulitis. We did use bedside ultrasound to locate the . An early gestational sac was seen. Unfortunately too early to see a heart rate. Patient will continue to follow-up with OB. Departure - Departure Disposition: 01 Home, Self Care Clinical Impression: Abscess or cellulitis of back, and not yet delivered in first trimester Condition: Stable Record reviewed to determine appropriate education?: Yes Instructions: ED Abscess IandD Prescriptions: Clindamycin [Cleocin] 450 mg PO TID #45 capsule Comments: Violeta the packing in your abscess should be removed in 24 to 48 hours. I recommend that you do this in the shower and allow warm water to rinse through the wound. After that apply any antibiotic ointment and a simple bandage. Because you are we will change her antibiotics to clindamycin. There is no medication that is absolutely 100% safe in but clindamycin has a fairly safe profile. If at any point you develop increased redness, fevers have increased pain or worries that the infection is getting worse please return to the ER for a second look. It is very important that you continue to follow-up with your OB as scheduled. If at any point you develop pelvic pain, have vaginal bleeding please return immediately to the ER for a second evaluation
[2020-01-11] MEDS ORDERED: SULFAMETH/TRIMETH DS 800/160 MG TABLET PO STA (14:18)
== END 2020-01-11 14:45 | disposition home or self-care (01) ==
LOC: ED 13:39
DX: O99.711 Diseases of the skin and subcutaneous tissue complicating pregnancy, first trimester (principal); L02.212 Cutaneous abscess of back [any part, except buttock and flank]; L03.312 Cellulitis of back [any part except buttock and flank]; Z3A.08 8 weeks gestation of pregnancy
CPT/HCPCS: 10061; 90471

== ENCOUNTER 2023-02-03 08:00 | Outpatient (CLI) | payer MEDICAID ==
--- NOTE | 2023-02-03 15:15 | XRAY Report ---
PROCEDURE: Chest 2V INDICATIONS: UPPER RESPIRATORY INFECTION TECHNIQUE: 2 views of the chest were acquired. COMPARISON: Chest x-ray, 02/14/2016. FINDINGS: Surgical changes and devices: None. Lungs and pleura: No pleural effusions or pneumothorax. Lungs are clear. Mediastinum: Mediastinal contours appear normal. Heart size is normal. Bones and chest wall: No suspicious bony lesions. Overlying soft tissues appear unremarkable. IMPRESSION: No acute cardiopulmonary process. Reviewed by: Jaquan Barba MD on 02/03/2023 3:13 PM PST Approved by: Jaquan Barba MD on 02/03/2023 3:13 PM PST Station ID: [id number]
== END 2023-02-03 23:59 | disposition home or self-care (01) ==
LOC: DI.S 08:00
PROVIDERS: ATTEND Physician Assistant
DX: J06.9 Acute upper respiratory infection, unspecified (principal)